=== PATIENT | male | born 1950 ===

== ENCOUNTER 2020-10-29 06:18 | Day surgery (SDC) | payer OTHER | END 2020-10-29 11:35 | disposition home or self-care (01) | LOC: AMB-ENDOS 06:18 | PROVIDERS: ATTEND Colon & Rectal Surgery | DX: K57.32 Diverticulitis of large intestine without perforation or abscess without bleeding (principal); K64.2 Third degree hemorrhoids; Z20.822 Contact with and (suspected) exposure to COVID-19 ==